=== PATIENT | male | born 1970 | race Caucasian/White ===

== ENCOUNTER 2019-03-05 09:03 | Inpatient (IN) | payer OTHER ==
[2019-03-05 09:38] VITALS: BMI 19.9
--- NOTE | 2019-03-05 11:51 | HP ---
CIWA Score Nausea/Vomitin-No Nausea/No Vomiting Muscle Tremors: None Anxiety: 2 Agitation: 2 Paroxysmal Sweats: No Perspiration Orientation: 0-Oriented Tacttile Disturbances: 0-None Auditory Disturbances: 2-Mild Harshness/Frighten Visual Disturbances: 0-None Headache: 0-None Present CIWA-Ar Total Score: 6 - Admission Criteria OASAS Guidelines: Admission for Medically Managed Detox: Requires at least one of the followin. CIWA greater than 12 2. Seizures within the past 24 hours 3. Delirium tremens within the past 24 hours 4. Hallucinations within the past 24 hours 5. Acute intervention needed for co occurring medical disorder 6. Acute intervention needed for co occurring psychiatric disorder 7. Severe withdrawal that cannot be handled at a lower level of care (continued vomiting, continued diarrhea, abnormal vital signs) requiring intravenous medication and/or fluids 8. Patient presents the following: None of the above Admission Criteria Met: Admission criteria not met Admission ROS S - HPI Allergies/Adverse Reactions: Allergies Allergy/AdvReac Type Severity Reaction Status Date / Time haloperidol [From Haldol] Allergy Intermediate Verified 03/05/19 09:26 History of Present Illness: pt here requesting detox from etoh use , reports 12 x 24 oz beer since early teens , latest use today , denies blackoutsor seizures, reports occasional tremors . cocaine : 50-60 $/day via inhalation . psych : bipolar d/o Exam Limitations: Intoxication - Ebola screening Have you traveled outside of the country in the last 21 days: No Have you had contact with anyone from an Ebola affected area: No Do you have a fever: No - Review of Systems Constitutional: Loss of Appetite EENT: reports: No Symptoms Reported Respiratory: reports: No Symptoms reported Cardiac: reports: No Symptoms Reported GI: reports: No Symptoms Reported : reports: No Symptoms Reported Musculoskeletal: reports: Joint Pain (left shoulder x 2 d denies fall) Integumentary: reports: No Symptoms Reported Neuro: reports: No Symptoms reported Endocrine: reports: No Symptoms Reported Psychiatric: reports: Orientated x3, Depressed Patient History - Smoking Cessation Smoking history: Current every day smoker Have you smoked in the past 12 months: Yes Hx Chewing Tobacco Use: No Initiated information on smoking cessation: Yes 'Breaking Loose' booklet given: 03/05/19 - Substances abused Alcohol Substance route: Oral Frequency: Daily Amount used: 10 or more 24oz beers Age of first use: 17 Date of last use: 03/05/19 Cocaine Substance route: Inhalation Frequency: Daily Amount used: $80 Age of first use: 17 Date of last use: 03/04/19 Admission Physical Exam BHS - Vital Signs Vital Signs: Vital Signs - 24 hr 03/05/19 09:29 Temperature 97.3 F L Pulse Rate 101 H Respiratory 18 Rate Blood Pressure 136/82 - Physical General Appearance: Yes: Alcohol on Breath, Intoxicated HEENTM: Yes: EOMI, Hearing grossly Normal, Normocephalic, Normal Voice Respiratory: Yes: Chest Non-Tender, Lungs Clear, Normal Breath Sounds, No Respiratory Distress, No Accessory Muscle Use Neck: Yes: No masses,lesions,Nodules, Trachea in good position Cardiology: Yes: Regular Rhythm, Regular Rate, S1, S2, Tachycardia Abdominal: Yes: Non Tender, Soft Musculoskeletal: Yes: full range of Motion, Gait Steady, Other ( full ROM left shoulder , no deformity , no edema) Extremities: Yes: Normal Range of Motion, Non-Tender Neurological: Yes: Fully Oriented, Alert, Motor Strength 5/5, Depressed Affect Integumentary: Yes: Warm - Diagnostic (1) Alcohol intoxication Current Visit: Yes Status: Chronic Qualifiers: Complication of substance-induced condition: uncomplicated Qualified Code(s ): F10.920 - Alcohol use, unspecified with intoxication, uncomplicated (2) Cocaine use disorder Current Visit: Yes Status: Chronic (3) Nicotine dependence with current use Current Visit: Yes Status: Chronic Breathalyzer - Breathalyzer Breathalyzer: 0.082 Urine Drug Screen - Test Device Lot number: [id number] Expiration date: 11/18/20 - Control Is test valid?: Yes - Results Drug screen NEGATIVE: No Urine drug screen results: TONNY-Cocaine, BZO-Benzodiazepines Inpatient Rehab Admission - Rehab Decision to Admit Inpatient rehab admission?: No
[2019-03-05] MEDS ORDERED: hydrOXYzine PAMOATE 25 MG CAPSULE (FP) PO PRN (11:56)
[2019-03-05] MEDS ORDERED: MAGNESIUM CITRATE 300 ML BOTTLE PO PRN (11:56)
[2019-03-05] MEDS ORDERED: ACETAMINOPHEN 325 MG TABLET (FP) PO PRN ×2 (11:56)
[2019-03-05] MEDS ORDERED: MAG HYDROX/AL HYDROX/SIMETH 30 ML UNIT-DOSE CUP PO PRN (11:56)
[2019-03-05] MEDS ORDERED: METHOCARBAMOL 500 MG TABLET PO PRN (11:56)
[2019-03-05] MEDS ORDERED: MAGNESIUM HYDROX 2400MG/30ML ORAL SUSPENSION 30 ML CUP PO PRN (11:56)
[2019-03-05] MEDS ORDERED: MENTHOL/PHENOL 1 EACH UD MM PRN (11:56)
[2019-03-05] MEDS ORDERED: IBUPROFEN 400 MG TABLET (FP) PO PRN (11:56)
[2019-03-05] MEDS ORDERED: BISMUTH SUBSALICYLATE 524 MG/30 ML UD PO PRN (11:56)
[2019-03-05] MEDS ORDERED: chlordiazePOXIDE HCL 10 MG CAPSULE PO PRN (12:00)
[2019-03-05] MEDS: chlordiazePOXIDE HCL 25 MG CAPSULE PO SCH ×2 (14:05→22:35)
[2019-03-05 14:43] LABS: HEMATOCRIT 39.3 % (35.4-49); HEMOGLOBIN 13.7 GM/dL (11.7-16.9); MCH 32.3 pg (25.7-33.7); MCHC 34.8 g/dl (32.0-35.9); MEAN CELL VOLUME 92.6 fl (80-96); MEAN PLT VOLUME 10.1 fl (7.5-11.1); PLATELET COUNT 253 K/MM3 (134-434); RBC 4.24 M/mm3 (4.00-5.60); RDW 14.4 % (11.9-15.9); WHITE BLOOD COUNT 5.8 K/mm3 (4.0-10.0)
[2019-03-05 14:51] LABS: ALBUMIN 3.6 g/dl (3.4-5.0); BILIRUBIN,TOTAL 0.9 mg/dL (0.2-1); BLOOD UREA NITROGEN 9.6 mg/dL (7-18); CALCIUM 8.9 mg/dL (8.5-10.1); CREATININE 0.7 mg/dL (0.55-1.3); POTASSIUM 3.9 mmol/L (3.5-5.1); TOT PROT 7.1 g/dl (6.4-8.2)
--- NOTE | 2019-03-05 16:22 | CONSULT ---
[facility] Psychiatric Consult - Data Date of interview: 03/05/19 Admission source: [facility] Identifying data: First admission to [facility] for this 48 y/o [place]born male self-referred for detoxification (BREE issues : alcohol, cocaine, nicotine) . Interviewed at [address] [place] [address]. Patient is single, no children, homeless, unemplotyed and deprived of income. Substance Abuse History: Discussed with the patient. Details in current [facility] report as follows : Smoking history: Current every day smoker. Have you smoked in the past 12 months: Yes. Hx Chewing Tobacco Use: No. Initiated information on smoking cessation: Yes. 'Breaking Loose' booklet given: 03/05/19. - Substances abused. Alcohol. Substance route: Oral. Frequency: Daily. Amount used: 10 or more 24oz beers. Age of first use: 17. Date of last use: . Cocaine. Substance route: Inhalation. Frequency: Daily. Amount used: $80. Age of first use: 17. Date of last use: 03/04/19 Medical History: Patient endorses good general health. Psychiatric History: Patient endorses the diagnosis of bipolar disorder. Admits to treatment with olanzapine + citalopram. Mr Guerrero indicates a history of psychiatric follow-up at [facility] (no show for months, as per self-report). Patient denies history of suicide attempts. Physical/Sexual Abuse/Trauma History: Patient denies. Additional Comment: Urine drug screen results: TONNY-Cocaine, BZO- Benzodiazepines. Noted. Mental Status Exam - Mental Status Exam Alert and Oriented to: Time, Place, Person Cognitive Function: Good Patient Appearance: Unkempt, Disheveled Mood: Nervous, Withdrawn Affect: Mood Congruent, Constricted Patient Behavior: Fatigued, Cooperative Speech Pattern: Clear (fluent in romanian; approximate gibraltarian ) Voice Loudness: Normal Thought Process: Goal Oriented Thought Disorder: Not Present Hallucinations: Denies Suicidal Ideation: Denies Homicidal Ideation: Denies Insight/Judgement: Poor Sleep: Poorly, Difficulty falling asleep Appetite: Good Muscle strength/Tone: Normal Gait/Station: Normal Psychiatric Findings - Problem List ([place] 1, 2,3) (1) Cocaine use disorder Current Visit: Yes Status: Chronic (2) Alcohol use disorder Current Visit: Yes Status: Chronic (3) Nicotine dependence with current use Current Visit: Yes Status: Chronic (4) Substance induced mood disorder Current Visit: Yes Status: Chronic (5) Insomnia Current Visit: Yes Status: Chronic (6) Non-compliance Current Visit: Yes Status: Chronic - Initial Treatment Plan Initial Treatment Plan: Psychoeducation. Sleep hygiene. Detoxification. MAT services discussed with patient. AA meetings. Insomnia is addressed with melatonin at bedtime. Medications reconciliation : no Home Medications. Observation.
[2019-03-05] MEDS: THIAMINE HCL 100 MG TABLET (FP) PO SCH (22:35)
[2019-03-05] MEDS: MELATONIN 5 MG TABLETS PO PRN (22:36)
[2019-03-06] MEDS: chlordiazePOXIDE HCL 25 MG CAPSULE PO SCH ×3 (06:48→22:42)
[2019-03-06] MEDS: PRENATAL VITAMINS W/ FOLIC ACID TABLET (FP) PO SCH (10:32)
--- NOTE | 2019-03-06 11:32 | PN ---
S CIWA - CIWA Score Nausea/Vomitin-No Nausea/No Vomiting Muscle Tremors: None Anxiety: 1-Mildly Anxious Agitation: 0-Normal Activity Paroxysmal Sweats: 3 Orientation: 0-Oriented Tacttile Disturbances: 0-None Auditory Disturbances: 0-None Visual Disturbances: 0-None Headache: 2-Mild CIWA-Ar Total Score: 6 BHS Progress Note (SOAP) Subjective: c/o sweats, anxiety, and tiredness. Objective: 03/06/19 11:31 Vital Signs 03/06/19 03/06/19 06:35 09:19 Temperature 97.0 F L 96.4 F L Pulse Rate 74 86 Respiratory 18 18 Rate Blood Pressure 112/65 107/66 Laboratory Last Values WBC 5.8 K/mm3 (4.0-10.0) 03/05/19 12:00 RBC 4.24 M/mm3 (4.00-5.60) 03/05/19 12:00 Hgb 13.7 GM/dL (11.7-16.9) 03/05/19 12:00 Hct 39.3 % (35.4-49) 03/05/19 12:00 MCV 92.6 fl (80-96) 03/05/19 12:00 MCH 32.3 pg (25.7-33.7) 03/05/19 12:00 MCHC 34.8 g/dl (32.0-35.9) 03/05/19 12:00 RDW 14.4 % (11.9-15.9) 03/05/19 12:00 Plt Count 253 K/MM3 (134-434) 03/05/19 12:00 MPV 10.1 fl (7.5-11.1) 03/05/19 12:00 Sodium 137 mmol/L (136-145) 03/05/19 12:00 Potassium 3.9 mmol/L (3.5-5.1) 03/05/19 12:00 Chloride 104 mmol/L (98-107) 03/05/19 12:00 Carbon Dioxide 25 mmol/L (21-32) 03/05/19 12:00 Anion Gap 9 MMOL/L (8-16) 03/05/19 12:00 BUN 9.6 mg/dL (7-18) 03/05/19 12:00 Creatinine 0.7 mg/dL (0.55-1.3) 03/05/19 12:00 Est GFR (CKD-EPI)AfAm 129.34 03/05/19 12:00 Est GFR (CKD-EPI)NonAf 111.59 03/05/19 12:00 Random Glucose 79 mg/dL (74-106) 03/05/19 12:00 Calcium 8.9 mg/dL (8.5-10.1) 03/05/19 12:00 Total Bilirubin 0.9 mg/dL (0.2-1) 03/05/19 12:00 AST 128 U/L (15-37) H 03/05/19 12:00 ALT 157 U/L (13-61) H 03/05/19 12:00 Alkaline Phosphatase 103 U/L (45-117) 03/05/19 12:00 Total Protein 7.1 g/dl (6.4-8.2) 03/05/19 12:00 Albumin 3.6 g/dl (3.4-5.0) 03/05/19 12:00 RPR Titer Nonreactive (NONREACTIVE) 03/05/19 12:00 Labs noted. Assessment: 03/06/19 11:31 AOX3, in no acute respiratory distress. Full ROM, ambulating in the unit. Withdrawal symptoms. Plan: continue detox.
[2019-03-06] MEDS: THIAMINE HCL 100 MG TABLET (FP) PO SCH (22:42)
[2019-03-06] MEDS: MELATONIN 5 MG TABLETS PO PRN (22:42)
[2019-03-07] MEDS: chlordiazePOXIDE 5 MG CAPSULE PO SCH ×2 (06:09→15:21)
[2019-03-07] MEDS: PRENATAL VITAMINS W/ FOLIC ACID TABLET (FP) PO SCH (10:42)
--- NOTE | 2019-03-07 13:49 | PN ---
[facility] CIWA - CIWA Score Nausea/Vomitin-Mild Nausea/No Vomiting Muscle Tremors: 4-Moderate,w/Arms Extend Anxiety: 3 Agitation: 2 Paroxysmal Sweats: 1-Minimal Palms Moist Orientation: 0-Oriented Tacttile Disturbances: 1-Very Mild Itch/Numbness Auditory Disturbances: 1-Very Mild Visual Disturbances: 0-None Headache: 0-None Present CIWA-Ar Total Score: 13 S Progress Note (SOAP) Subjective: 48 years old male admitted on 03/05/19 for alcohol withdrawal sx management treated with librium detox regimen ate breakfast resting on bed report sleep better at night Objective: 03/07/19 13:48 Vital Signs Temperature 97.5 F L 03/07/19 06:45 Pulse Rate 69 03/07/19 06:45 Respiratory Rate 18 03/07/19 06:45 Blood Pressure 103/65 03/07/19 06:45 O2 Sat by Pulse Oximetry (%) Laboratory Last Values WBC 5.8 K/mm3 (4.0-10.0) 03/05/19 12:00 RBC 4.24 M/mm3 (4.00-5.60) 03/05/19 12:00 Hgb 13.7 GM/dL (11.7-16.9) 03/05/19 12:00 Hct 39.3 % (35.4-49) 03/05/19 12:00 MCV 92.6 fl (80-96) 03/05/19 12:00 MCH 32.3 pg (25.7-33.7) 03/05/19 12:00 MCHC 34.8 g/dl (32.0-35.9) 03/05/19 12:00 RDW 14.4 % (11.9-15.9) 03/05/19 12:00 Plt Count 253 K/MM3 (134-434) 03/05/19 12:00 MPV 10.1 fl (7.5-11.1) 03/05/19 12:00 Sodium 137 mmol/L (136-145) 03/05/19 12:00 Potassium 3.9 mmol/L (3.5-5.1) 03/05/19 12:00 Chloride 104 mmol/L (98-107) 03/05/19 12:00 Carbon Dioxide 25 mmol/L (21-32) 03/05/19 12:00 Anion Gap 9 MMOL/L (8-16) 03/05/19 12:00 BUN 9.6 mg/dL (7-18) 03/05/19 12:00 Creatinine 0.7 mg/dL (0.55-1.3) 03/05/19 12:00 Est GFR (CKD-EPI)AfAm 129.34 03/05/19 12:00 Est GFR (CKD-EPI)NonAf 111.59 03/05/19 12:00 Random Glucose 79 mg/dL (74-106) 03/05/19 12:00 Calcium 8.9 mg/dL (8.5-10.1) 03/05/19 12:00 Total Bilirubin 0.9 mg/dL (0.2-1) 03/05/19 12:00 AST 128 U/L (15-37) H 03/05/19 12:00 ALT 157 U/L (13-61) H 03/05/19 12:00 Alkaline Phosphatase 103 U/L (45-117) 03/05/19 12:00 Total Protein 7.1 g/dl (6.4-8.2) 03/05/19 12:00 Albumin 3.6 g/dl (3.4-5.0) 03/05/19 12:00 RPR Titer Nonreactive (NONREACTIVE) 03/05/19 12:00 lab noted 03/07/19 13:49 ast elevation will change to ativan detox regimen repeat ast 03/07/19 13:57 Assessment: 03/07/19 13:57 alcohol withdrawal sx 03/07/19 13:57 discuss alcohol related ast elevation Plan: continue librium detox regimen
[2019-03-07] MEDS ORDERED: LORazepam 0.5 MG TABLET PO PRN (13:55)
[2019-03-07] MEDS: LORazepam 0.5 MG TABLET PO SCH ×2 (14:52→22:44)
[2019-03-07] MEDS: THIAMINE HCL 100 MG TABLET (FP) PO SCH (22:43)
[2019-03-07] MEDS: MELATONIN 5 MG TABLETS PO PRN (22:46)
[2019-03-08] MEDS ORDERED: chlordiazePOXIDE HCL 10 MG CAPSULE PO PRN
[2019-03-08] MEDS ORDERED: chlordiazePOXIDE HCL 10 MG CAPSULE PO SCH (05:00)
[2019-03-08] MEDS: LORazepam 0.5 MG TABLET PO SCH ×2 (06:34→17:18)
--- NOTE | 2019-03-08 09:11 | PN ---
S CIWA - CIWA Score Nausea/Vomitin-No Nausea/No Vomiting Muscle Tremors: 2 Anxiety: 2 Agitation: 2 Paroxysmal Sweats: 1-Minimal Palms Moist Orientation: 0-Oriented Tacttile Disturbances: 0-None Auditory Disturbances: 0-None Visual Disturbances: 0-None Headache: 1-Very Mild CIWA-Ar Total Score: 8 S Progress Note (SOAP) Subjective: 48 years old male admitted on 03/05/19 for alcohol withdrawal sx management treated with ativan detox regimen due to ast elevation ate breakfast ambulating on hallway social with peers health teaching on alcohol related ast elevation as well as liver insults Objective: 03/08/19 09:28 Vital Signs Temperature 96.0 F L 03/08/19 09:23 Pulse Rate 108 H 03/08/19 09:23 Respiratory Rate 20 03/08/19 09:23 Blood Pressure 107/73 03/08/19 09:23 O2 Sat by Pulse Oximetry (%) Laboratory Last Values WBC 5.8 K/mm3 (4.0-10.0) 03/05/19 12:00 RBC 4.24 M/mm3 (4.00-5.60) 03/05/19 12:00 Hgb 13.7 GM/dL (11.7-16.9) 03/05/19 12:00 Hct 39.3 % (35.4-49) 03/05/19 12:00 MCV 92.6 fl (80-96) 03/05/19 12:00 MCH 32.3 pg (25.7-33.7) 03/05/19 12:00 MCHC 34.8 g/dl (32.0-35.9) 03/05/19 12:00 RDW 14.4 % (11.9-15.9) 03/05/19 12:00 Plt Count 253 K/MM3 (134-434) 03/05/19 12:00 MPV 10.1 fl (7.5-11.1) 03/05/19 12:00 Sodium 137 mmol/L (136-145) 03/05/19 12:00 Potassium 3.9 mmol/L (3.5-5.1) 03/05/19 12:00 Chloride 104 mmol/L (98-107) 03/05/19 12:00 Carbon Dioxide 25 mmol/L (21-32) 03/05/19 12:00 Anion Gap 9 MMOL/L (8-16) 03/05/19 12:00 BUN 9.6 mg/dL (7-18) 03/05/19 12:00 Creatinine 0.7 mg/dL (0.55-1.3) 03/05/19 12:00 Est GFR (CKD-EPI)AfAm 129.34 03/05/19 12:00 Est GFR (CKD-EPI)NonAf 111.59 03/05/19 12:00 Random Glucose 79 mg/dL (74-106) 03/05/19 12:00 Calcium 8.9 mg/dL (8.5-10.1) 03/05/19 12:00 Total Bilirubin 0.9 mg/dL (0.2-1) 03/05/19 12:00 AST 128 U/L (15-37) H 03/05/19 12:00 ALT 157 U/L (13-61) H 03/05/19 12:00 Alkaline Phosphatase 103 U/L (45-117) 03/05/19 12:00 Total Protein 7.1 g/dl (6.4-8.2) 03/05/19 12:00 Albumin 3.6 g/dl (3.4-5.0) 03/05/19 12:00 RPR Titer Nonreactive (NONREACTIVE) 03/05/19 12:00 lab noted ast pending Assessment: 03/08/19 09:28 alcohol withdrawal sx Plan: continue ativan detox regimen
[2019-03-08] MEDS: PRENATAL VITAMINS W/ FOLIC ACID TABLET (FP) PO SCH (10:16)
[2019-03-08] MEDS: MELATONIN 5 MG TABLETS PO PRN (22:02)
[2019-03-08] MEDS: THIAMINE HCL 100 MG TABLET (FP) PO SCH (22:02)
[2019-03-09] MEDS ORDERED: LORazepam 0.5 MG TABLET PO ONE (05:00)
[2019-03-09] MEDS ORDERED: chlordiazePOXIDE HCL 10 MG CAPSULE PO ONE (05:00)
[2019-03-09 09:21] VITALS: BP 116/74; PULSE 93; TEMP 97.6
--- NOTE | 2019-03-09 10:26 | DS ---
[facility] Detox Discharge Summary Admission Date: 03/05/19 Discharge Date: 03/09/19 - History Present History: Alcohol Dependence Additional Comments: 48 years old male admitted on 03/05/19 for alcohol withdrawal sx management treated with ativan detox regimen patient is alert oriented x 3 respiratory clear lung bilaterally on auscultation skin warm and dry abdomen soft no rebound tenderness - Physical Exam Results Vital Signs: Vital Signs Temperature 97.6 F 03/09/19 09:20 Pulse Rate 93 H 03/09/19 09:20 Respiratory Rate 18 03/09/19 09:20 Blood Pressure 116/74 03/09/19 09:20 O2 Sat by Pulse Oximetry (%) Pertinent Admission Physical Exam Findings: alcohol withdrawal sx Laboratory Last Values WBC 5.8 K/mm3 (4.0-10.0) 03/05/19 12:00 RBC 4.24 M/mm3 (4.00-5.60) 03/05/19 12:00 Hgb 13.7 GM/dL (11.7-16.9) 03/05/19 12:00 Hct 39.3 % (35.4-49) 03/05/19 12:00 MCV 92.6 fl (80-96) 03/05/19 12:00 MCH 32.3 pg (25.7-33.7) 03/05/19 12:00 MCHC 34.8 g/dl (32.0-35.9) 03/05/19 12:00 RDW 14.4 % (11.9-15.9) 03/05/19 12:00 Plt Count 253 K/MM3 (134-434) 03/05/19 12:00 MPV 10.1 fl (7.5-11.1) 03/05/19 12:00 Sodium 137 mmol/L (136-145) 03/05/19 12:00 Potassium 3.9 mmol/L (3.5-5.1) 03/05/19 12:00 Chloride 104 mmol/L (98-107) 03/05/19 12:00 Carbon Dioxide 25 mmol/L (21-32) 03/05/19 12:00 Anion Gap 9 MMOL/L (8-16) 03/05/19 12:00 BUN 9.6 mg/dL (7-18) 03/05/19 12:00 Creatinine 0.7 mg/dL (0.55-1.3) 03/05/19 12:00 Est GFR (CKD-EPI)AfAm 129.34 03/05/19 12:00 Est GFR (CKD-EPI)NonAf 111.59 03/05/19 12:00 Random Glucose 79 mg/dL (74-106) 03/05/19 12:00 Calcium 8.9 mg/dL (8.5-10.1) 03/05/19 12:00 Total Bilirubin 0.9 mg/dL (0.2-1) 03/05/19 12:00 AST 128 U/L (15-37) H 03/05/19 12:00 ALT 157 U/L (13-61) H 03/05/19 12:00 Alkaline Phosphatase 103 U/L (45-117) 03/05/19 12:00 Total Protein 7.1 g/dl (6.4-8.2) 03/05/19 12:00 Albumin 3.6 g/dl (3.4-5.0) 03/05/19 12:00 RPR Titer Nonreactive (NONREACTIVE) 03/05/19 12:00 lab noted ast elevation - Treatment Hospital Course: Detox Protocol Followed, Detoxed Safely, Responded well, Discharged Condition Good, Rehab Referral Accepted Patient has Accepted [facility] - Medication Discharge Medications: Ambulatory Orders NK [No Known Home Medication] 03/05/19 - Diagnosis (1) Alcohol use disorder Current Visit: Yes Status: Acute (2) Nicotine dependence with current use Current Visit: Yes Status: Acute (3) Substance induced mood disorder Current Visit: Yes Status: Suspected - AMA Did Patient Leave Against Medical Advice: No CIWA Score - CIWA Score Nausea/Vomitin-No Nausea/No Vomiting Muscle Tremors: 1-None Visible, but Chloride Anxiety: 1-Mildly Anxious Agitation: 1-Slight > Activity Paroxysmal Sweats: No Perspiration Orientation: 0-Oriented Tacttile Disturbances: 0-None Auditory Disturbances: 0-None Visual Disturbances: 0-None Headache: 1-Very Mild CIWA-Ar Total Score: 4
[2019-03-09] MEDS: PRENATAL VITAMINS W/ FOLIC ACID TABLET (FP) PO SCH (10:46)
== END 2019-03-09 11:10 | disposition other institution (70) | DRG 774 ==
LOC: YASAS 09:03 → Y3N 12:47
PROVIDERS: ADMIT Allergy & Immunology; ATTEND Allergy & Immunology
PROC: HZ2ZZZZ Detoxification Services for Substance Abuse Treatment (ICD-10-PCS; principal; 2019-03-05)
DX: F10.230 Alcohol dependence with withdrawal, uncomplicated (principal); F10.220 Alcohol dependence with intoxication, uncomplicated; F14.20 Cocaine dependence, uncomplicated; F17.210 Nicotine dependence, cigarettes, uncomplicated; F19.24 Other psychoactive substance dependence with psychoactive substance-induced mood disorder; G47.00 Insomnia, unspecified; R00.0 Tachycardia, unspecified; R74.0 Nonspecific elevation of levels of transaminase and lactic acid dehydrogenase [LDH]; Z91.19 Patient's noncompliance with other medical treatment and regimen; Z88.8 Allergy status to other drugs, medicaments and biological substances; Z59.0 Homelessness
CPT/HCPCS: 36415; 71045-TC-FY; 80053; 85027; 86593

== ENCOUNTER 2019-03-09 11:18 | Inpatient (IN) | payer OTHER ==
--- NOTE | 2019-03-09 10:29 | HP ---
[facility] Rehab Assess/Revision - Admission History Admitted to Rehab from: [facility] Date of Admission to Rehab: 03/09/19 - Findings Detox History & Physical reviewed: Yes Concur with findings: Yes Comments/Additional Findings: transferred from detox to rehab admission as per protocol Inpatient Rehab Admission - Rehab Decision to Admit Inpatient rehab admission?: Yes - Initial Determination Are CD services needed?: Yes Free of communicable disease: Yes Not in need of hospitalization: Yes - Rehab Admission Criteria Previous failed treatment: Yes Poor recovery environment: Yes Comorbidities: Yes Lacks judgement: Yes Patient is meeting Inpatient Rehab admission criteria:: Yes
[~2019-03-09 11:18] MED LIST: ACETAMINOPHEN 325 MG TABLET (FP) PO PRN; LOPERAMIDE HCL 2 MG CAPSULE PO PRN; MAG HYDROX/AL HYDROX/SIMETH 30 ML UNIT-DOSE CUP PO PRN; MAGNESIUM CITRATE 300 ML BOTTLE PO PRN; MAGNESIUM HYDROX 2400MG/30ML ORAL SUSPENSION 30 ML CUP PO PRN; MENTHOL/PHENOL 1 EACH UD MM PRN; P-EPHED 60MG/TRIPROLIDI 2.5MG TABLET PO PRN; guaiFENesin 200 MG/10 ML 10 ML UNIT-DOSE CUPS PO PRN
[2019-03-09] MEDS: THIAMINE HCL 100 MG TABLET (FP) PO SCH (21:16)
[2019-03-09] MEDS: MELATONIN 5 MG TABLETS PO PRN (21:16)
[2019-03-10] MEDS: PRENATAL VITAMINS W/ FOLIC ACID TABLET (FP) PO SCH (10:12)
--- NOTE | 2019-03-10 11:04 | PN ---
[facility] Progress Note Note: Pt is a 48 y/o male admitted to rehab from [address] [place] [address] after completing. Pt reported by nurse that he refused repeat Labs(LFTs ordered from detox due to liver enzymes elevation-AST/ALT). Pat was spoken to and states will do tomorrow. Vital Signs - 24 hr 03/10/19 03/10/19 03/10/19 01:29 03:30 06:53 Temperature 97.8 F Pulse Rate 70 Respiratory 18 18 18 Rate Blood Pressure 103/61 Pt is alert o x 3 nad oob ambulating with steady gait A/P Elevated liver enzymes AST = 128 ALT= 157 other labs reviewed wnl s/p detox Repeat Labs in the morning of 03/12/19 Encourage increase po fluids.
[2019-03-10] MEDS: THIAMINE HCL 100 MG TABLET (FP) PO SCH (21:24)
[2019-03-10] MEDS: MELATONIN 5 MG TABLETS PO PRN (21:24)
[2019-03-11] MEDS: IBUPROFEN 400 MG TABLET (FP) PO PRN (10:20)
[2019-03-11] MEDS: PRENATAL VITAMINS W/ FOLIC ACID TABLET (FP) PO SCH (10:20)
[2019-03-11] MEDS: THIAMINE HCL 100 MG TABLET (FP) PO SCH (21:16)
[2019-03-11] MEDS: MELATONIN 5 MG TABLETS PO PRN (21:17)
[2019-03-12] MEDS: PRENATAL VITAMINS W/ FOLIC ACID TABLET (FP) PO SCH (09:55)
[2019-03-12] MEDS: IBUPROFEN 400 MG TABLET (FP) PO PRN ×2 (09:55→21:18)
[2019-03-12 12:42] LABS: SGOT/AST 26 U/L (15-37); SGPT/ALT 70 U/L (13-61)
[2019-03-12] MEDS: THIAMINE HCL 100 MG TABLET (FP) PO SCH (21:16)
[2019-03-12] MEDS: MELATONIN 5 MG TABLETS PO PRN (21:17)
[2019-03-13] MEDS: PRENATAL VITAMINS W/ FOLIC ACID TABLET (FP) PO SCH (09:43)
[2019-03-13] MEDS: MELATONIN 5 MG TABLETS PO PRN (21:16)
[2019-03-13] MEDS: THIAMINE HCL 100 MG TABLET (FP) PO SCH (21:16)
[2019-03-14] MEDS: PRENATAL VITAMINS W/ FOLIC ACID TABLET (FP) PO SCH (10:10)
[2019-03-14] MEDS: THIAMINE HCL 100 MG TABLET (FP) PO SCH (21:16)
[2019-03-14] MEDS: MELATONIN 5 MG TABLETS PO PRN (21:17)
[2019-03-14] MEDS: IBUPROFEN 400 MG TABLET (FP) PO PRN (21:17)
--- NOTE | 2019-03-15 09:57 | PN ---
S Progress Note Note: Lab Reviewed. Pt also c/o left shoulder area pain especially when laying down. Reports Motrin not effective. Denies recent injury or truama. Laboratory Tests 03/12/19 09:05 AST 26 ALT 70 H Liver enzymes significantly improved. A/P Muscle spasms D/w pt will order Robaxin 500 mg po tid prn
[2019-03-15] MEDS: PRENATAL VITAMINS W/ FOLIC ACID TABLET (FP) PO SCH (10:24)
[2019-03-15] MEDS: IBUPROFEN 400 MG TABLET (FP) PO PRN (10:24)
[2019-03-15] MEDS: THIAMINE HCL 100 MG TABLET (FP) PO SCH (21:19)
[2019-03-15] MEDS: METHOCARBAMOL 500 MG TABLET PO PRN (21:20)
[2019-03-15] MEDS: MELATONIN 5 MG TABLETS PO PRN (21:20)
[2019-03-16] MEDS: PRENATAL VITAMINS W/ FOLIC ACID TABLET (FP) PO SCH (10:19)
[2019-03-16] MEDS: IBUPROFEN 400 MG TABLET (FP) PO PRN (10:20)
[2019-03-16] MEDS: METHOCARBAMOL 500 MG TABLET PO PRN ×2 (10:22→21:24)
[2019-03-16] MEDS: THIAMINE HCL 100 MG TABLET (FP) PO SCH (21:24)
[2019-03-16] MEDS: MELATONIN 5 MG TABLETS PO PRN (21:25)
[2019-03-17] MEDS: METHOCARBAMOL 500 MG TABLET PO PRN ×2 (10:21→21:19)
[2019-03-17] MEDS: IBUPROFEN 400 MG TABLET (FP) PO PRN (10:23)
[2019-03-17] MEDS: PRENATAL VITAMINS W/ FOLIC ACID TABLET (FP) PO SCH (11:15)
[2019-03-17] MEDS: THIAMINE HCL 100 MG TABLET (FP) PO SCH (21:18)
[2019-03-17] MEDS: MELATONIN 5 MG TABLETS PO PRN (21:19)
[2019-03-18] MEDS: METHOCARBAMOL 500 MG TABLET PO PRN ×2 (09:38→21:16)
[2019-03-18] MEDS: PRENATAL VITAMINS W/ FOLIC ACID TABLET (FP) PO SCH (09:38)
[2019-03-18] MEDS: THIAMINE HCL 100 MG TABLET (FP) PO SCH (21:16)
[2019-03-18] MEDS: MELATONIN 5 MG TABLETS PO PRN (21:16)
[2019-03-18] MEDS: IBUPROFEN 400 MG TABLET (FP) PO PRN (21:17)
[2019-03-19] MEDS: PRENATAL VITAMINS W/ FOLIC ACID TABLET (FP) PO SCH (10:14)
[2019-03-19] MEDS: THIAMINE HCL 100 MG TABLET (FP) PO SCH (21:26)
[2019-03-19] MEDS: MELATONIN 5 MG TABLETS PO PRN (21:26)
[2019-03-19] MEDS: METHOCARBAMOL 500 MG TABLET PO PRN (21:26)
[2019-03-20 09:11] VITALS: BP 112/69; PULSE 79; TEMP 97.8
[2019-03-20] MEDS: PRENATAL VITAMINS W/ FOLIC ACID TABLET (FP) PO SCH (09:51)
[2019-03-20] MEDS: MELATONIN 5 MG TABLETS PO PRN (21:15)
[2019-03-20] MEDS: METHOCARBAMOL 500 MG TABLET PO PRN (21:15)
[2019-03-20] MEDS: THIAMINE HCL 100 MG TABLET (FP) PO SCH (21:16)
[2019-03-21] MEDS: PRENATAL VITAMINS W/ FOLIC ACID TABLET (FP) PO SCH (09:52)
[2019-03-21] MEDS: METHOCARBAMOL 500 MG TABLET PO PRN (21:09)
[2019-03-21] MEDS: MELATONIN 5 MG TABLETS PO PRN (21:09)
[2019-03-21] MEDS: THIAMINE HCL 100 MG TABLET (FP) PO SCH (21:09)
--- NOTE | 2019-03-22 09:04 | DS ---
[facility] Rehab Discharge Summary - [facility] Rehab Discharge Summary Admission Date: 03/09/19 Discharge Date: 03/22/19 - History Present History: Alcohol dependence, Cocaine dependence Additional Comments: Pt is a 48 y/o male with a hx BREE admitted to rehab and scheduled for discharge today. Pt has been referred for CD aftercare/Medical care /Mental Health follow up at [facility] Pertinent Past History: Denies PMHx Hx Bipolar Disorder(no meds) - Discharge Physical Exam Vital Signs: Vital Signs Temperature 97.8 F 03/20/19 09:10 Pulse Rate 79 03/20/19 09:10 Respiratory Rate 18 03/22/19 06:57 Blood Pressure 112/69 03/20/19 09:10 O2 Sat by Pulse Oximetry (%) Alert o x 3, well groomed, calm, denies s/h/i nad oob ambulating with steady gait cardiac:s1 s2,rrr lungs:cta,mukes[place]. abdomen:soft,flat,+bs,nt extremities/skin:no edema,full ROM/weight bearing;skin intact. Pertinent Admission Physical Exam Findings: Laboratory Tests 03/12/19 09:05 AST 26 ALT 70 H liver enzymes improved above compared to labs in detox admission. - Treatment Discharge Condition: Discharge condition good Hospital Course: Rehabilitated safely and responded well CD aftercare referral accepted - Medication Discharge Medications: Ambulatory Orders NK [No Known Home Medication] 03/05/19 - Medication-Assisted Treatment (MAT) Medication-Assisted Treatment (MAT): No - Discharge Instructions Diet, activity, other medical instructions: Diet:Regular Activity: oob ad gary Other medical instructions:Follow up with primary care and CD aftercare as recommended and scheduled today after discharge. - Diagnosis (1) Alcohol use disorder Current Visit: Yes Status: Chronic (2) Nicotine dependence with current use Current Visit: Yes Status: Chronic (3) Cocaine use disorder Current Visit: Yes Status: Chronic - Follow-up Referral Minutes to complete discharge: 20 - AMA Did Patient Leave Against Medical Advice: No
[2019-03-22] MEDS: PRENATAL VITAMINS W/ FOLIC ACID TABLET (FP) PO SCH (10:43)
== END 2019-03-22 10:15 | disposition home or self-care (01) | DRG 772 ==
LOC: YASAS 11:18 → Y5N 11:22
PROVIDERS: ADMIT Neuromusculoskeletal Medicine & OMM; ATTEND Neuromusculoskeletal Medicine & OMM
PROC: HZ42ZZZ Group Counseling for Substance Abuse Treatment, Cognitive-Behavioral (ICD-10-PCS; principal; 2019-03-09)
DX: F10.20 Alcohol dependence, uncomplicated (principal); F14.20 Cocaine dependence, uncomplicated; F17.210 Nicotine dependence, cigarettes, uncomplicated; M62.838 Other muscle spasm; Z88.6 Allergy status to analgesic agent; Z59.0 Homelessness
CPT/HCPCS: 36415; 84450; 84460